=== PATIENT | female | born 1995 | race African-American/Black ===

== ENCOUNTER 2018-05-23 16:43 | Emergency (ER) | payer MEDICAID, OTHER ==
[~2018-05-23] VITALS: Ht 172.7 cm; Wt 73.0 kg
[2018-05-23 16:53] VITALS: BP 126/87
== END 2018-05-23 20:00 | disposition left against medical advice (07) ==
LOC: ER 16:43
DX: Z53.21 Procedure and treatment not carried out due to patient leaving prior to being seen by health care provider (principal)